=== PATIENT | male | born 1995 | race Caucasian/White ===

== ENCOUNTER → 2020-03-12 15:44 | Outpatient (POV) | payer OTHER, SELFPAY | PROVIDERS: PCP Nurse Practitioner Family; Visit Provider Dermatology | DX: Z00.00 Encounter for general adult medical examination without abnormal findings (principal) ==

== ENCOUNTER → 2020-09-16 12:07 | Outpatient (CLI) | payer BC, SELFPAY | PROVIDERS: PCP Family Medicine; Visit Provider Nurse Practitioner Family | DX: Z20.822 Contact with and (suspected) exposure to COVID-19 (principal) | CPT/HCPCS: U0003 ==

== ENCOUNTER 2023-07-05 10:09 | Emergency (ER) | payer BC, SELFPAY ==
[2023-07-05 10:30] VITALS: BP 133/77; PULSE 103; RESP 18; TEMP 38.4; O2SAT 99; BMI 23.5
--- NOTE | 2023-07-05 10:35 | EXP.UTC ---
Discharge Plan Disposition Patient Disposition: Home, Self-Care Condition: Good Prescriptions Prescriptions: New clindamycin HCl 300 mg capsule 300 mg PO Q8H Qty: 30 0RF prednisone 10 mg tablet 10 mg PO BID 3 Days Qty: 6 0RF No Action [id number]-[id number]-[id number] 2-30-10 mg/5 mL syrup 10 ml PO Q4-6H PRN (Reason: cough and congestion) 7 Days Qty: 118 0RF Referrals Follow up/Referrals: Provider,Referral, MD [Primary Care Provider] - See instructions Activity Restrictions/Add. Instructions Additional Instructions/Restrictions: Drink plenty of fluids. Take tylenol or ibuprofen for pain or fever. Take the medications as directed. Follow up with your regular doctor. GO TO THE ER FOR ANY WORSENING SYMPTOMS Throw your tooth brush away and get a new one. Clinical Impressions Clinical Impression: Strep throat Stand Alone Forms Stand Alone Forms: Work/School Release Instructions Patient Instructions: Strep Throat, DI for Strep Throat Discharge ED Provider: Henry Lugo [facility] General Stated complaint: sore throat, body aches, chills, headache Time Seen by Provider: 07/05/23 10:35 History of Present Illness Provider Complaint: He states that for the past 3 days he has had fever and worsening sore throat. Related Data Previous Rx's Medication Instructions Recorded [id number]-[id number]-[id number] 10 ml PO Q4-6H PRN cough and 07/31/19 2 mg-30 mg-10 mg/5 mL oral syrup congestion 7 days #118 mL clindamycin HCl 300 mg capsule 300 mg PO Q8H #30 caps 07/05/23 prednisone 10 mg tablet 10 mg PO BID 3 days #6 tabs 07/05/23 Allergies Allergy/AdvReac Type Severity Reaction Status Date / Time PCN (PENICILLIN) Allergy Mild I-RASH Uncoded 07/27/17 14:[address] [facility] Disclaimer: The information contained in this section may have been updated after the patient was seen, as this information can be updated by other users. Social History Smoking Status: Never smoker alcohol intake: current substance use type: denies use current occupational status: employed Travel in the last 8 weeks: None household members: significant other ROS Obtained: Yes All systems reviewed & no additional complaints except as documented Constitutional Constitutional: Reports chills and Reports fever(s) Eyes Eyes: Denies eye discharge ENT Ears, Nose, Mouth, and Throat: Reports as per HPI Cardiovascular Cardiovascular: Denies chest pain Respiratory Respiratory: Denies chest congestion and Reports cough Gastrointestinal Gastrointestingal: Reports nausea; Denies abdominal pain, constipation, cramping, diarrhea or vomiting Musculoskeletal Musculoskeletal: Denies arthralgias Integumentary/Breasts Skin/Breast: Denies rash Neurologic Neurologic: Denies paresthesias Physical Exam General General appearance: alert and in no apparent distress Head Head exam: atraumatic, normocephalic and normal inspection Eye Eye exam: Present normal appearance, PERRL and EOMI ENT ENT exam: Present mucous membranes moist and normal external ear exam Expanded ENT Exam TM/Canal exam: Bilateral TM: erythema and bulging Nose exam: Absent sinus tenderness Mouth exam: Present normal external inspection; Absent drooling Teeth exam: Present normal inspection Throat exam: Present tonsillar erythema, tonsillomegaly and tonsillar exudate Neck Neck exam: Present normal inspection, full ROM and trachea midline; Absent tenderness, meningismus or lymphadenopathy Chest Chest inspection: Present normal inspection and symmetric chest wall rise; Absent tenderness Respiratory Respiratory exam: Present normal lung sounds bilaterally; Absent respiratory distress, wheezes or stridor Cardiovascular Cardiovascular exam: Present regular rate and normal rhythm; Absent systolic murmur or diastolic murmur Abdominal Exam Abdominal exam: Present soft and normal bowel sounds; Absent distention, tenderness, guarding, rebound or rigidity
[2023-07-05 11:00] LABS: UTC Strep Screen (Rapid) Positive (Negative)
[2023-07-05 11:01] LABS: UTC Influenza A Antigen Negative (Negative); UTC Influenza B Antigen Negative (Negative)
[2023-07-05 11:17] VITALS: BP 133/77; PULSE 103; RESP 18; TEMP 37.4; O2SAT 99
== END 2023-07-05 11:17 | disposition home or self-care (01) ==
PROVIDERS: Emergency Provider Nurse Practitioner Family
DX: J02.0 Streptococcal pharyngitis (principal); R51.9 Headache, unspecified; R07.0 Pain in throat; R50.9 Fever, unspecified
CPT/HCPCS: 87804; 87880; 99204; 99212; G0463